=== PATIENT | male | born 1940 | race Caucasian/White ===

== ENCOUNTER 2022-07-14 20:35 | Emergency (ER) | payer MEDICARE ==
[~2022-07-14] VITALS: Ht 175.3 cm; Wt 95.3 kg
--- NOTE | 2022-07-14 22:23 | NUR ---
Called [facility] ambulance to transport patient back to [facility] and rehab. ETA is 1.5hr.
--- NOTE | 2022-07-14 22:27 | NUR ---
Gave SBAR report to [facility] nurse [facility]
--- NOTE | 2022-07-14 22:46 | NUR ---
Gave SBAR report to [facility] [address] who will take patient back to [facility] and rehab[facility]
[2022-07-14 22:57] VITALS: BP 135/77
== END 2022-07-14 22:58 ==
LOC: ER 20:42
DX: S70.02XA Contusion of left hip, initial encounter (principal); W05.0XXA Fall from non-moving wheelchair, initial encounter; Y93.89 Activity, other specified; Y92.122 Bedroom in nursing home as the place of occurrence of the external cause; M62.81 Muscle weakness (generalized); R26.2 Difficulty in walking, not elsewhere classified; N32.81 Overactive bladder; N40.0 Benign prostatic hyperplasia without lower urinary tract symptoms; E78.5 Hyperlipidemia, unspecified; I25.10 Atherosclerotic heart disease of native coronary artery without angina pectoris; Z99.3 Dependence on wheelchair
CPT/HCPCS: 72170; 73502; A4663